=== PATIENT | female | born 1980 | race Caucasian/White ===

== ENCOUNTER 2017-05-13 19:20 | Emergency (ER) | payer BC ==
--- NOTE | 2017-05-13 19:39 | EDM.PDOC ---
ED HPI GENERAL MEDICAL PROBLEM - General Chief Complaint: Cardiovascular Problem Stated Complaint: 38 WEEKS IRREGULAR HEARTBEAT Time Seen by Provider: 05/13/17 19:25 - History of Present Illness INITIAL COMMENTS - FREE TEXT/NARRATIVE: HISTORY AND PHYSICAL: History of present illness: Patient 36 show female was scheduled for next who presents with a concern of palpitations she has a history of hypertensions on medication for that and states she's had these episodes of fluttering of her heart since yesterday she had multiple episodes today quantified by 60-70 vair without associated chest pain nausea vomiting dizziness or any other concern she had no vaginal discharge cramping bleeding or other complaints. Review of systems: As per history of present illness and below otherwise all systems reviewed and negative. Past medical history: As per history of present illness and as reviewed below otherwise noncontributory. Surgical history: As per history of present illness and as reviewed below otherwise noncontributory. Social history: No reported history of drug or alcohol abuse. Family history: As per history of present illness and as reviewed below otherwise noncontributory. Physical exam: HEENT: Atraumatic, normocephalic, pupils reactive, negative for conjunctival pallor or scleral icterus, mucous membranes moist, throat clear, neck supple, nontender, trachea midline. Lungs: Clear to auscultation, breath sounds equal bilaterally, chest nontender. Heart: S1S2, regular, negative for clicks, rubs, or JVD. Abdomen: Soft, nondistended, nontender. Negative for masses or hepatosplenomegaly. Negative for costovertebral tenderness. Pelvis: Stable nontender. Genitourinary: Deferred. Rectal: Deferred. Extremities: Atraumatic, negative for cords or calf pain. Neurovascular unremarkable. Neuro: Awake, alert, oriented. Cranial nerves II through XII unremarkable. Cerebellum unremarkable. Motor and sensory unremarkable throughout. Exam nonfocal. Diagnostics: CBC CMP troponin PT/INR chest x-ray EKG heart tones Therapeutics: hospital monitor Impression: 1 palpitations #2 history of 38 week intrauterine #3 history of hypertension Definitive disposition and diagnosis as appropriate pending reevaluation and review of above. - Related Data Allergies Allergy/AdvReac Type Severity Reaction Status Date / Time ibuprofen [From Advil] Allergy Difficulty Verified 05/13/17 19:25 Breathing Home Meds: Home Meds Azithromycin 600 mg PO 05/13/17 [History] Fluticasone/Salmeterol [Advair Diskus 250-50] 05/13/17 [History] Labetalol [Normodyne] 100 mg PO BID 05/13/17 [History] Pnv No.122/Iron/Folic Acid [ Multi Tablet] 1 tab 05/13/17 [History] Past Medical History HEENT History: Reports: None Cardiovascular History: Reports: Hypertension Respiratory History: Reports: Asthma Gastrointestinal History: Reports: None Genitourinary History: Reports: None 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 CRIB MANAGER History: Reports: Musculoskeletal History: Reports: None Neurological History: Reports: None Psychiatric History: Reports: None Endocrine/Metabolic History: Reports: None Hematologic History: Reports: None Dermatologic History: Reports: None - Infectious Disease History Infectious Disease History: Reports: Chicken Pox Social & Family History - Family History Family Medical History: Noncontributory - Tobacco Use Smoking Status *Q: Never Smoker - Recreational Drug Use Recreational Drug Use: No ED ROS GENERAL - Review of Systems Review Of Systems: ROS reveals no pertinent complaints other than HPI. ED EXAM, GENERAL - Physical Exam Exam: See Below (See dictation) Course - Vital Signs Text/Narrative:: Case discussed with TOOL CRIB MANAGER request patient be sent to labor and delivery status post evaluation for further evaluation and monitoring Last Recorded V/S: Last Vital Signs Temp 36.6 C 05/13/17 19:27 Pulse 89 05/13/17 19:27 Resp 18 05/13/17 19:27 BP 169/94 H 05/13/17 19:27 Pulse Ox 96 05/13/17 19:27 - Orders/Labs/Meds Orders: Active Orders 24 hr Category Date Time Status EKG 12 Lead [EKG Documentation Completion] [RC] STAT Care 05/13/17 19:33 Active Chest 1V Frontal [CR] Stat Exams 05/13/17 19:33 Ordered CBC WITH AUTO DIFF [HEME] Stat Lab 05/13/17 19:33 Ordered CKMB [CHEM] Stat Lab 05/13/17 19:34 Ordered COMPREHENSIVE METABOLIC PN,CMP [CHEM] Stat Lab 05/13/17 19:33 Ordered INR,PT,PROTHROMBIN TIME [COAG] Stat Lab 05/13/17 19:34 Ordered TROPONIN I [CHEM] Stat Lab 05/13/17 19:33 Ordered Departure - Departure Time of Disposition: 19:37 Disposition: Home, Self-Care 01 Condition: Good Clinical Impression: Palpitations, Third trimester , Hypertension Forms: ED Department Discharge Additional Instructions: The following information is given to patients seen in the emergency department who are being discharged to home. This information is to outline your options for follow-up care. We provide all patients seen in our emergency department with a follow-up referral. The need for follow-up, as well as the timing and circumstances, are variable depending upon the specifics of your emergency department visit. If you don't have a primary care physician on staff, we will provide you with a referral. We always advise you to contact your personal physician following an emergency department visit to inform them of the circumstance of the visit and for follow-up with them and/or the need for any referrals to a consulting specialist. The emergency department will also refer you to a specialist when appropriate. This referral assures that you have the opportunity for followup care with a specialist. All of these measure are taken in an effort to provide you with optimal care, which includes your followup. Under all circumstances we always encourage you to contact your private physician who remains a resource for coordinating your care. When calling for followup care, please make the office aware that this follow-up is from your recent emergency room visit. If for any reason you are refused follow-up, please contact the [facility] emergency department at and asked to speak to the emergency department charge nurse. Follow-up labor and delivery immediately as discussed return as needed as discussed - My Orders Last 24 Hours: My Active Orders 05/13/17 19:33 EKG 12 Lead [EKG Documentation Completion] [RC] STAT Chest 1V Frontal [CR] Stat CBC WITH AUTO DIFF [HEME] Stat COMPREHENSIVE METABOLIC PN,CMP [CHEM] Stat TROPONIN I [CHEM] Stat 05/13/17 19:34 CKMB [CHEM] Stat INR,PT,PROTHROMBIN TIME [COAG] Stat - Assessment/Plan Last 24 Hours: My Active Orders 05/13/17 19:33 EKG 12 Lead [EKG Documentation Completion] [RC] STAT Chest 1V Frontal [CR] Stat CBC WITH AUTO DIFF [HEME] Stat COMPREHENSIVE METABOLIC PN,CMP [CHEM] Stat TROPONIN I [CHEM] Stat 05/13/17 19:34 CKMB [CHEM] Stat INR,PT,PROTHROMBIN TIME [COAG] Stat
[2017-05-13 20:14] LABS: CHLORIDE,CL 107 mmol/L (98-110); SODIUM,NA 139 mmol/L (136-146)
[2017-05-13 20:31] VITALS: BP 157/88
--- NOTE | 2017-05-15 11:37 | CR ---
EXAM DATE: 05/13/17 PATIENT'S AGE: 36 Patient: ALCIRA BOWIE Facility: [place], [place] Site . Site : [id number] Study: XRay Chest [id number]/24/2017 8:13:57 PM Ordering Physician: Boston Osborne Final Report: INDICATION: PT STATES IRREGULAR HEARTBEAT, "FLUTTER". PT IS 38 WKS . Single AP view Findings: The lungs are clear. Pulmonary vascularity, mediastinum and cardiac silhouette are within normal limits. No effusions and no pneumothorax. Osseous structures appear unremarkable. Impression: No evidence of acute cardiopulmonary disease. Dictated by: Saul Tatum MD @ 05/13/2017 20:15:38 (Electronic Signature) Report Signed by Proxy. RASHAD
== END 2017-05-13 20:46 | disposition home or self-care (01) ==
LOC: MW.ED 19:20
DX: O16.3 Unspecified maternal hypertension, third trimester (principal); J45.909 Unspecified asthma, uncomplicated; O47.1 False labor at or after 37 completed weeks of gestation; Z3A.38 38 weeks gestation of pregnancy; Z36 Encounter for antenatal screening of mother
CPT/HCPCS: 36415; 59025; 71010; 71010-26; 80053; 81003; 82553; 84484; 84550; 85025; 85610; 93005; 99283; 99285-25

== ENCOUNTER 2017-05-18 09:38 | Inpatient (IN) | payer BC ==
[2017-05-18] MEDS ORDERED: ceFAZolin 2 GM in Premix Bag 1 BAG IV ONE (09:52)
[2017-05-18] MEDS ORDERED: Sodium Chloride 0.9% 2.5 ML Syringe FLUSH PRN (09:52)
[2017-05-18] MEDS ORDERED: Sodium Chloride 0.9% 10 ML Syringe FLUSH PRN (09:52)
[2017-05-18] MEDS ORDERED: Citric Acid/Sodium Citrate Solution 30 ML Cup PO SCH (10:00)
[2017-05-18] MEDS: Lactated Ringers 1,000 ML IV SCH ×3 (10:24→11:39)
--- NOTE | 2017-05-18 11:26 | PCM.PREANE ---
Preanesthetic Assessment - Procedure Proposed Procedure: #3; tubal ligation? - Anesthesia/Transfusion/Family Hx Anesthesia History: Prior Anesthesia Without Reaction Family History of Anesthesia Reaction: No Transfusion History: No Prior Transfusion(s) Additional History: Hx of recent cough and cold treated aggressively with advair and zithromax. Patient has hypertension in the non- state as well but states she does not take any medicine..a discussion followed with recommendation to seek following for HBP and medicate if recommended. - Review of Systems General: No Symptoms Pulmonary: Other (hx asthma) Cardiovascular: Other (hypertension on meds) Gastrointestinal: Other (GERD) Neurological: Headache (migraines) Other: Reports: None - Physical Assessment NPO Status Date: 05/17/17 NPO Status Time: 23:00 Height: 5 ft 10 in Weight: 238 lb ASA Class: 3 Mental Status: Alert & Oriented x3 Airway Class: Mallampati = 1 Dentition: Reports: Normal Dentition Thyro-Mental Finger Breadths: 3 Mouth Opening Finger Breadths: 3 ROM/Head Extension: Full Lungs: Clear to auscultation, Normal respiratory effort, Other (no cough with a very deep breath) Cardiovascular: Regular Rate, Regular Rhythm - Lab Values: Laboratory Last Values WBC 11.78 K/uL (4.0-11.0) H 05/18/17 10:16 RBC 4.24 M/uL (4.30-5.90) L 05/18/17 10:16 Hgb 12.6 g/dL (12.0-16.0) 05/18/17 10:16 Hct 38.1 % (36.0-46.0) 05/18/17 10:16 MCV 89.9 fL (80.0-98.0) 05/18/17 10:16 MCH 29.7 pg (27.0-32.0) 05/18/17 10:16 MCHC 33.1 g/dL (31.0-37.0) 05/18/17 10:16 RDW Std Deviation 44.4 fl (28.0-62.0) 05/18/17 10:16 RDW Coeff of Shahram 14 % (11.0-15.0) 05/18/17 10:16 Plt Count 201 K/uL (150-400) 05/18/17 10:16 MPV 10.60 fL (7.40-12.00) 05/18/17 10:16 Nucleated RBC % 0.0 /100WBC 05/18/17 10:16 Nucleated RBCs # 0 K/uL 05/18/17 10:16 Blood Type O POSITIVE 05/18/17 10:16 Antibody Screen NEGATIVE 05/18/17 10:16 - Allergies Allergies/Adverse Reactions: Allergies Allergy/AdvReac Type Severity Reaction Status Date / Time advil liquid gel Allergy Difficulty Uncoded 05/15/17 08:48 Breathing - Blood Blood Available: Yes Product(s) Available: PRBC (T and S) - Anesthesia Plan Pre-Op Medication Ordered: Antacids Beta Jaspreet: Labetalol (yesterday) - Acknowledgements Anesthesia Type Planned: Spinal Pt an Appropriate Candidate for the Planned Anesthesia: Yes Alternatives and Risks of Anesthesia Discussed w Pt/Guardian: Yes Pt/Guardian Understands and Agrees with Anesthesia Plan: Yes PreAnesthesia Questionnaire HEENT History: Reports: None Cardiovascular History: Reports: Hypertension Respiratory History: Reports: Asthma Gastrointestinal History: Reports: None Genitourinary History: Reports: None 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 ANTHROPOLOGIST History: Reports: Musculoskeletal History: Reports: Fracture Other Musculoskeletal History: hx fx leg Neurological History: Reports: Migraines Psychiatric History: Reports: None Endocrine/Metabolic History: Hematologic History: Reports: None Dermatologic History: Reports: None - Infectious Disease History Infectious Disease History: Reports: Chicken Pox - Past Surgical History Head Surgeries/Procedures: Reports: None Cardiovascular Surgical History: Reports: None Respiratory Surgical History: Reports: None Female Surgical History: Reports: Section, Tubal Ligation Other Female Surgeries/Procedures: c/section x2, tubal ligation and reversal of tubal ligation, (growth removed from colon with 1st c/section) Musculoskeletal Surgical History: Reports: None - SUBSTANCE USE Smoking Status *Q: Never Smoker Tobacco Use Within Last Twelve Months: No Recreational Drug Use History: No - HOME MEDS Home Medications: Home Meds Fluticasone/Salmeterol [Advair Diskus 250-50] 1 puff INH BID 05/13/17 [History] Labetalol [Normodyne] 100 mg PO BID 05/13/17 [History] Pnv No.122/Iron/Folic Acid [ Multi Tablet] 1 tab PO DAILY 05/13/17 [ History] Acetaminophen [Tylenol] 2 tab PO ASDIRECTED PRN 05/15/17 [History] Albuterol [Ventolin HFA] 2 puff INH ASDIRECTED PRN 05/15/17 [History] Magnesium 250 mg PO BID 05/15/17 [History] - CURRENT (IN HOUSE) MEDS Current Meds: Current Medications Citric Acid/Sodium Citrate (Bicitra Solution) 30 ml PO .ONCE ANGELY Lactated Ringer's (Ringers, Lactated) 1,000 mls @ 500 mls/hr IV .BOLUS ANGELY Last Admin: 05/18/17 10:47 Dose: 500 mls/hr Sodium Chloride (Saline Flush) 10 ml FLUSH ASDIRECTED PRN PRN Reason: Keep Vein Open Sodium Chloride (Saline Flush) 2.5 ml FLUSH ASDIRECTED PRN PRN Reason: Keep Vein Open Discontinued Medications Cefazolin Sodium/Dextrose 2 gm (/ Premix) 50 mls @ 100 mls/hr IV ONETIME ONE Stop: 05/18/17 10:21
[2017-05-18] MEDS ORDERED: Oxytocin/Lactated Ringers 30 UNIT/500 ML BAG ONE (11:31)
[2017-05-18] MEDS ORDERED: Morphine PF 10 MG/10 ML SDV ONE (11:37)
[2017-05-18] MEDS ORDERED: Octyl 2-Cyanoacrylate 1 Tube ONE (12:36)
[2017-05-18] MEDS ORDERED: Phenylephrine/Normal Saline 100 MCG/ML 10 ML Syringe ONE (12:41)
--- NOTE | 2017-05-18 13:07 | PCM.OPNOTE ---
- General Post-Op/Procedure Note Date of Surgery/Procedure: 05/18/17 Operative Procedure(s): RLTCS with bilateral salphingectomy Findings: viable male, 3805g, Apgars 9, 9 Pre Op Diagnosis: full term at 39w0d, desired repeat section with bilateral salphingectomy for sterilization Post-Op Diagnosis: same as above Anesthesia Technique: Combo spinal/epidural Primary Surgeon: Rosibel Reeder Secondary Surgeon: Sheila Rendon Anesthesia Provider: Onofre Vo Change Management: Mercedes Bethea Pathology: bilateral fallopian tubes Fluid Replacement, Intraop: 2,000 Output, Urine Amount: 50 EBL in mLs: 700 (with fluid) Condition: Good
[2017-05-18] MEDS ORDERED: diphenhydrAMINE 50 MG/ML SDV IVPUSH PRN ×2 (13:13→13:16)
[2017-05-18] MEDS ORDERED: Lanolin 100% Cream 7 GM Tube TOP PRN (13:13)
[2017-05-18] MEDS ORDERED: Bisacodyl 10 MG Supp RECTAL PRN (13:13)
[2017-05-18] MEDS ORDERED: Ondansetron 4 MG/2 ML SDV IV PRN (13:13)
[2017-05-18] MEDS ORDERED: Acetaminophen/oxyCODONE 325-5 MG Tab PO PRN ×2 (13:13→13:16)
[2017-05-18] MEDS ORDERED: Ibuprofen 800 MG Tab PO PRN (13:13)
[2017-05-18] MEDS ORDERED: Methylergonovine 0.2 MG/1 ML Amp IM PRN (13:13)
[2017-05-18] MEDS ORDERED: Lactated Ringers 1,000 ML IV SCH (13:15)
[2017-05-18] MEDS ORDERED: Naloxone 0.4 MG/ML Syringe IVPUSH PRN (13:16)
[2017-05-18] MEDS ORDERED: Nalbuphine 10 MG/1 ML Vial IVPUSH PRN (13:16)
[2017-05-18] MEDS ORDERED: fentaNYL 100 MCG/2 ML SDV IVPUSH PRN (13:16)
[2017-05-18] MEDS ORDERED: Albuterol 8 GM Inhaler INH PRN (13:18)
[2017-05-18] MEDS: Ketorolac 30 MG/ML SDV IVPUSH SCH ×2 (13:33→20:15)
--- NOTE | 2017-05-18 13:44 | PCM.POSTAN ---
POST ANESTHESIA ASSESSMENT - MENTAL STATUS Mental Status: alert, oriented - RESPIRATORY Respiratory Status: respiratory rate WNL, airway patent, O2 saturation stable - CARDIOVASCULAR CV Status: pulse rate WNL, blood pressure stable - GASTROINTESTINAL GI Status: no symptoms - PAIN Pain Score: 0 - POST OP HYDRATION Hydration Status: adequate & stable
--- NOTE | 2017-05-18 19:39 | OR ---
SURGEON: Rosibel Reeder M.D. DATE OF PROCEDURE: 05/18/2017 PREOPERATIVE DIAGNOSES: 39 weeks' intrauterine . Prior section. Desires repeat section. Request sterilization by bilateral salpingectomy. POSTOPERATIVE DIAGNOSES: 39 weeks' intrauterine . Prior section. Desires repeat section. Request sterilization by bilateral salpingectomy. PROCEDURE: Repeat low transverse section with bilateral salpingectomy for sterilization. UNIX DEVELOPER: Sheila Rendon PA-C. ANESTHESIA: Spinal. ESTIMATED BLOOD LOSS: With copious amniotic fluid was 700 mL. IV FLUIDS: 2000 mL crystalloid. URINE OUTPUT: 50 mL. FINDINGS: Live-born male, score 9 and 9, weighing 3806 g. There was adhesion of the omentum to the anterior abdominal wall. Bilateral ovaries appeared normal. Bilateral tubes appeared normal. There was dense adhesions and thickening of the fascia upon entry. COMPLICATIONS: None known. DISPOSITION: Stable to recovery. BRIEF HISTORY: This is a 36-year-old female, G4, P3-0-0-3. She presents at 39 weeks' gestation for repeat delivery. She strongly desires permanent sterilization. She has been approved by the [facility] Ethics Committee. Discussion was held regarding option of tubal ligation with partial salpingectomy versus complete salpingectomy. She desires complete salpingectomy with risks discussed including bleeding, infection, as well as risk of regret. Surgical risks for delivery were discussed including bleeding, infection, injury to bowel, bladder, blood vessels, or other organs, risk of thromboembolic event, and risk of anesthesia. Understanding all these risks, she does desire to proceed. NARRATIVE: With the patient in the left tilt position, under adequate spinal analgesia, the abdomen was prepped with chlorhexidine and draped in usual fashion for abdominal surgery. SCDs were in place. Moss catheter had been placed and she had received 2 g of Ancef IV. After documentation of adequate analgesia, the prior cicatrix was excised and the incision was carried through the subcutaneous tissue to the fascia which was scored transversely in the midline. The fascial incision was extended laterally using curved Michael scissors. The fascia was elevated from the underlying rectus muscle and using sharp and blunt dissection to dissect through the dense adhesions. The rectus muscles were from the overlying fascia. The rectus muscles were then bluntly in the midline. A finger was used to enter the amniotic cavity. The rectus muscles were in the midline using sharp dissection. The Marc O retractor was placed. The visceroperitoneum over the lower uterine segment was incised and an adequate bladder flap was developed. A transverse curvilinear incision was made over the lower uterine segment with a scalpel. A finger was used to enter the amniotic cavity. Copious clear fluid was noted. The incision was extended using blunt dissection. The head was delivered via the uterine incision with fundal pressure. The was bulb suctioned by nose and mouth. The cord was clamped x2 and cut, and the was handed to the nurse in attendance at delivery. The infant was a liveborn male, score 9 and 9, weighing 3806 g. Cord blood was collected for cord ABGs as well as routine cord blood sampling. The placenta was removed by manual extraction. The cervix was opened with a ring forceps. The uterus was cleaned with a dry laparotomy tape. The uterine incision was closed with a running lock suture of 0 Polysorb followed by an imbricating layer of 0 Polysorb. Three additional [id number] sutures were placed for complete hemostasis. Attention was then turned to the tubes. The distal tubal fimbria were dissected free from the ovary using the Harmonic wave and then going proximally along the mesosalpinx to the cornea where the tube was transected, this was repeated on the opposite side. The base of the tubal salpingectomy was inspected and was completely hemostatic and the incision was inspected and at this point was completely hemostatic. Therefore, the Marc O retractor was removed. The incision was inspected one final time and was hemostatic. The omental adhesions to the anterior abdominal wall were dissected using electrocautery. The rectus muscle and peritoneum were loosely approximated in the midline using a running mattress suture of 0 Polysorb. The posterior aspect of the fascia was inspected and was hemostatic. The fascial incision was closed with a running suture of 0 Polysorb. Subcutaneous tissue was irrigated. Any areas of bleeding that were noted were cauterized. The deep subcutaneous tissue was reapproximated using a running suture of 3-0 plain followed by a subcuticular suture for the skin of 3- 0 Polysorb with a final layer of Dermabond for the superficial skin. Final sponge, needle, and instrument counts were reported as correct. There were no known complications. The patient is in recovery in good condition. Lambert is in nursery in good condition. TARUN WINSTON /[id number]
[2017-05-18] MEDS: Fluticasone/Salmeterol 250-50 MCG Inhalation Powder 14/Diskus INH SCH (20:32)
[2017-05-18] MEDS: Labetalol 100 MG Tab PO SCH (23:38)
[2017-05-18] MEDS: Docusate Sodium 100 MG Cap PO SCH (23:38)
[2017-05-18] MEDS: Magnesium [Magnesium] 250 MG PO SCH (23:40)
[2017-05-19] MEDS: Ketorolac 30 MG/ML SDV IVPUSH SCH ×3 (00:51→13:35)
[2017-05-19] MEDS: Fluticasone/Salmeterol 250-50 MCG Inhalation Powder 14/Diskus INH SCH ×2 (08:27→20:12)
--- NOTE | 2017-05-19 08:32 | PCM.PNPP ---
[id number] Status: Reports: pain controlled, tolerating diet, ambulating, urinating, incentive spirometry (instructed patient to use every hour) - Review of Systems General: Denies: Fever, Weakness, Fatigue Pulmonary: Denies: shortness of breath, pleuritic chest pain, cough Cardiovascular: Denies: Chest Pain, Palpitations, Dyspnea on Exertion Gastrointestinal: Denies: Abdominal pain Genitourinary: Denies: dysuria Psychiatric: Reports: no symptoms - General Info Date of Service: 05/19/17 - Patient Data Vital Signs - most recent: Last Vital Signs Temp 36.3 C 05/19/17 04:00 Pulse 77 05/19/17 07:00 Resp 16 05/19/17 07:00 BP 121/81 05/19/17 04:00 Pulse Ox 94 L 05/19/17 07:00 Weight - most recent: 107.955 kg I&O - last 24 hours: Intake & Output 05/18/17 05/19/17 05/19/17 22:59 06:59 14:59 Intake Total 990 1400 Output Total 3720 Balance 990 -2320 Lab Results - last 24 hrs: Laboratory Results - last 24 hr 05/18/17 05/18/17 05/19/17 Range/Units 10:16 10:16 05:27 WBC 11.78 H (4.0-11.0) K/uL RBC 4.24 L (4.30-5.90) M/uL Hgb 12.6 11.3 L (12.0-16.0) g/dL Hct 38.1 33.7 L (36.0-46.0) % MCV 89.9 (80.0-98.0) fL MCH 29.7 (27.0-32.0) pg MCHC 33.1 (31.0-37.0) g/dL RDW Std Deviation 44.4 (28.0-62.0) fl RDW Coeff of Shahram 14 (11.0-15.0) % Plt Count 201 (150-400) K/uL MPV 10.60 (7.40-12.00) fL Nucleated RBC % 0.0 /100WBC Nucleated RBCs # 0 K/uL Blood Type O POSITIVE Antibody Screen NEGATIVE Med Orders - Current: Current Medications Albuterol (Ventolin Hfa) 0 gm INH ASDIRECTED PRN PRN Reason: Shortness of Breath Bisacodyl (Dulcolax) 10 mg RECTAL .ONCE PRN PRN Reason: Constipation Diphenhydramine HCl (Benadryl) 25 mg IVPUSH Q6H PRN PRN Reason: Itching or Nausea Diphenhydramine HCl (Benadryl) 25 mg IVPUSH Q4H PRN PRN Reason: Itching Stop: 05/19/17 13:20 Docusate Sodium (Colace) 100 mg PO BID [facility] Last Admin: 05/18/17 23:38 Dose: 100 mg Emollient Ointment (Lansinoh Hpa) 0 gm TOP ASDIRECTED PRN PRN Reason: Sore Nipples Fentanyl (Sublimaze) 25 - 50 mcg IVPUSH Q30M PRN PRN Reason: Pain Lactated Ringer's (Ringers, Lactated) 1,000 mls @ 125 mls/hr IV ASDIRECTED [facility] Last Admin: 05/18/17 14:20 Dose: 125 mls/hr Ibuprofen (Motrin) 800 mg PO Q8H PRN PRN Reason: mild pain or fever Ketorolac Tromethamine (Toradol) 30 mg IVPUSH Q6H [facility] Stop: 05/19/17 13:16 Last Admin: 05/19/17 06:52 Dose: 30 mg Labetalol HCl (Normodyne) 100 mg PO BID [facility] Last Admin: 05/18/17 23:38 Dose: 100 mg Methylergonovine Maleate (Methergine) 0.2 mg IM .ONCE PRN PRN Reason: Excessive Vaginal Bleeding Nalbuphine HCl (Nubain) 5 mg IVPUSH Q3H PRN PRN Reason: Pruritis Stop: 05/19/17 13:16 Last Admin: 05/18/17 14:13 Dose: 5 mg Naloxone HCl (Narcan) 0.1 mg IVPUSH ONETIME PRN PRN Reason: Other Stop: 05/19/17 13:20 Ondansetron HCl (Zofran) 4 mg IV Q4H PRN PRN Reason: Nausea/Vomiting Oxycodone/Acetaminophen (Percocet 325-5 Mg) 1 - 2 tab PO Q6H PRN PRN Reason: Pain Stop: 05/20/17 14:00 Oxycodone/Acetaminophen (Percocet 325-5 Mg) 1 - 2 tab PO Q4H PRN PRN Reason: Pain (moderate 4-6) Magnesium [Magnesium (] 250 Mg) 250 each PO BID [facility] Last Admin: 05/18/17 23:40 Dose: 250 each Prenat Multivit/Rn Home Care/Iron/Folic Ac ( Mtr) 1 each PO DAILY [facility] Fluticasone/Salmeterol (Advair Diskus 250-50) 1 puff INH BID [facility] Last Admin: 05/19/17 08:27 Dose: 1 puff Discontinued Medications Citric Acid/Sodium Citrate (Bicitra Solution) 30 ml PO .ONCE [facility] Last Admin: 05/18/17 11:48 Dose: 30 ml Lactated Ringer's (Ringers, Lactated) 1,000 mls @ 500 mls/hr IV .BOLUS [facility] Last Admin: 05/18/17 11:39 Dose: 500 mls/hr Cefazolin Sodium/Dextrose 2 gm (/ Premix) 50 mls @ 100 mls/hr IV ONETIME ONE Stop: 05/18/17 10:21 Oxytocin/Lactated Ringer's (Pitocin In Lr 30 Units/500 Ml) Confirm Administered Dose 30 unit in 500 mls @ as directed .ROUTE .STK-MED ONE Stop: 05/18/17 11:32 Morphine Sulfate (Duramorph Pf) Confirm Administered Dose 10 mg .ROUTE .STK-MED ONE Stop: 05/18/17 11:38 Octyl Cyanoacrylate (Dermabond Advance) Confirm Administered Dose 1 applic .ROUTE .STK-MED ONE Stop: 05/18/17 12:37 Phenylephrine HCl (Phenylephrine In Ns 100 Mcg/Ml) Confirm Administered Dose 1 mg .ROUTE .STK-MED ONE Stop: 05/18/17 12:42 Sodium Chloride (Saline Flush) 10 ml FLUSH ASDIRECTED PRN PRN Reason: Keep Vein Open Sodium Chloride (Saline Flush) 2.5 ml FLUSH ASDIRECTED PRN PRN Reason: Keep Vein Open - Infant Interaction Infant Disposition, : [place] in Room with Family Infant Interaction: Holding Feeding: Breastfed Infant; Nursed Well Support Person: - Recovery Exam Fundal Tone: Firm Fundal Level: 1 Fingerbreadths Below Umbilicus Fundal Placement: Midline Lochia Amount: Scant, Small Lochia Color: Rubra/Red Perineum Description: Intact, Minimal Bruising/Swelling Episiotomy/Laceration: None Bladder Status: Indwelling Catheter in Place Urinary Elimination: Indwelling Catheter - Exam General: alert, oriented Lungs: Clear to auscultation Cardiovascular: Regular Rate, Regular Rhythm Abdomen: bowel sounds present, soft, no tenderness, no distension Extremities: edema (trace) Psy/Mental Status: alert, normal affect, normal mood - Problem List & Annotations (1) delivery delivered SNOMED Code(s): 321538100 Code(s): O82 - ENCOUNTER FOR DELIVERY WITHOUT INDICATION Status: Acute Current Visit: Yes - Problem List Review Problem List Initiated/Reviewed/Updated: Yes - My Orders Last 24 Hours: My Active Orders 05/18/17 13:13 Patient Status [ADT] Routine Ambulate [RC] PER UNIT ROUTINE Communication Order [RC] PER UNIT ROUTINE Communication Order [RC] PER UNIT ROUTINE Communication Order [RC] Per Unit Routine Intake and Output [RC] Q8H May Shower [RC] ASDIRECTED Notify Provider Intake and Out [RC] ASDIRECTED Notify Provider Vital Signs [RC] ASDIRECTED RT Incentive Spirometry [RC] Q2HWA Acetaminophen/oxyCODONE [Percocet 325-5 MG] 1 - 2 tab PO Q4H PRN Bisacodyl [Dulcolax] 10 mg RECTAL .ONCE PRN Ibuprofen [Motrin] 800 mg PO Q8H PRN Lanolin [Lansinoh HPA] See Dose Instructions TOP ASDIRECTED PRN Methylergonovine [Methergine] 0.2 mg IM .ONCE PRN Ondansetron [Zofran] 4 mg IV Q4H PRN diphenhydrAMINE [Benadryl] 25 mg IVPUSH Q6H PRN Abdominal Binder [OM.PC] Routine Assess Lochia [WOMSER] Per Unit Routine Assess Uterine Involution [WOMSER] Per Unit Routine Breast Pump [WOMSER] Per Unit Routine Peripheral IV Discontinue [OM.PC] Routine Sequential Compression Device [OM.PC] Per Unit Routine Resuscitation Status Routine 05/18/17 13:14 Antiembolic Devices [RC] PER UNIT ROUTINE 05/18/17 13:15 Ketorolac [Toradol] 30 mg IVPUSH Q6H Lactated Ringers [Ringers, Lactated] 1,000 ml IV ASDIRECTED 05/18/17 13:18 Albuterol [Ventolin HFA] 0 gm INH ASDIRECTED PRN 05/18/17 21:00 Docusate Sodium [Colace] 100 mg PO BID Fluticasone/Salmeterol [Advair Diskus 250-50] 1 puff INH BID Labetalol [Normodyne] 100 mg PO BID Patient's Own Medication [Ptom] 250 each PO BID 05/18/17 Dinner Regular Diet [DIET] 05/19/17 09:00 Vit/FA/Fe Fumarate/Se [ MTR] 1 each PO DAILY - Assessment Assessment:: POD#1 from [facility]LTCS with bilateral salphingectomy. Minimal pain and lochia. Denies SOB or wheezing. Aim for discharge tomorrow. - Plan Plan:: Continue routine post-op cares. Encouraged to shower and ambulate halls. Anticipate discharge home tomorrow. <Rosibel Reeder - Last Filed: 05/19/17 17:50> - Patient Data Vital Signs - most recent: Last Vital Signs Temp 36.9 C 05/19/17 16:00 Pulse 89 05/19/17 16:00 Resp 20 05/19/17 16:00 BP 127/78 05/19/17 16:00 Pulse Ox 94 L 05/19/17 16:00 I&O - last 24 hours: Intake & Output 05/19/17 05/19/17 05/19/17 06:59 14:59 22:59 Intake Total 1400 Output Total 3720 700 Balance -2320 -700 Lab Results - last 24 hrs: Laboratory Results - last 24 hr 05/19/17 Range/Units 05:27 Hgb 11.3 L (12.0-16.0) g/dL Hct 33.7 L (36.0-46.0) % Med Orders - Current: Current Medications Albuterol (Ventolin Hfa) 0 gm INH ASDIRECTED PRN PRN Reason: Shortness of Breath Bisacodyl (Dulcolax) 10 mg RECTAL .ONCE PRN PRN Reason: Constipation Diphenhydramine HCl (Benadryl) 25 mg IVPUSH Q6H PRN PRN Reason: Itching or Nausea Docusate Sodium (Colace) 100 mg PO BID [facility] Last Admin: 05/19/17 09:04 Dose: 100 mg Emollient Ointment (Lansinoh Hpa) 0 gm TOP ASDIRECTED PRN PRN Reason: Sore Nipples Fentanyl (Sublimaze) 25 - 50 mcg IVPUSH Q30M PRN PRN Reason: Pain Lactated Ringer's (Ringers, Lactated) 1,000 mls @ 125 mls/hr IV ASDIRECTED [facility] Last Admin: 05/18/17 14:20 Dose: 125 mls/hr Ibuprofen (Motrin) 800 mg PO Q8H PRN PRN Reason: mild pain or fever Labetalol HCl (Normodyne) 100 mg PO BID [facility] Last Admin: 05/19/17 09:06 Dose: 100 mg Methylergonovine Maleate (Methergine) 0.2 mg IM .ONCE PRN PRN Reason: Excessive Vaginal Bleeding Ondansetron HCl (Zofran) 4 mg IV Q4H PRN PRN Reason: Nausea/Vomiting Oxycodone/Acetaminophen (Percocet 325-5 Mg) 1 - 2 tab PO Q6H PRN PRN Reason: Pain Stop: 05/20/17 14:00 Oxycodone/Acetaminophen (Percocet 325-5 Mg) 1 - 2 tab PO Q4H PRN PRN Reason: Pain (moderate 4-6) Magnesium [Magnesium (] 250 Mg) 250 each PO BID [facility] Last Admin: 05/19/17 09:06 Dose: 250 each Prenat Multivit/Cable/Iron/Folic Ac ( Mtr) 1 each PO DAILY [facility] Last Admin: 05/19/17 09:04 Dose: 1 each Fluticasone/Salmeterol (Advair Diskus 250-50) 1 puff INH BID [facility] Last Admin: 05/19/17 08:27 Dose: 1 puff Discontinued Medications Citric Acid/Sodium Citrate (Bicitra Solution) 30 ml PO .ONCE [facility] Last Admin: 05/18/17 11:48 Dose: 30 ml Diphenhydramine HCl (Benadryl) 25 mg IVPUSH Q4H PRN PRN Reason: Itching Stop: 05/19/17 13:20 Lactated Ringer's (Ringers, Lactated) 1,000 mls @ 500 mls/hr IV .BOLUS [facility] Last Admin: 05/18/17 11:39 Dose: 500 mls/hr Cefazolin Sodium/Dextrose 2 gm (/ Premix) 50 mls @ 100 mls/hr IV ONETIME ONE Stop: 05/18/17 10:21 Last Admin: 05/19/17 09:49 Dose: Not Given Oxytocin/Lactated Ringer's (Pitocin In Lr 30 Units/500 Ml) Confirm Administered Dose 30 unit in 500 mls @ as directed .ROUTE .STK-MED ONE Stop: 05/18/17 11:32 Last Admin: 05/19/17 09:49 Dose: Not Given Ketorolac Tromethamine (Toradol) 30 mg IVPUSH Q6H [facility] Stop: 05/19/17 13:16 Last Admin: 05/19/17 13:35 Dose: 30 mg Morphine Sulfate (Duramorph Pf) Confirm Administered Dose 10 mg .ROUTE .STK-MED ONE Stop: 05/18/17 11:38 Nalbuphine HCl (Nubain) 5 mg IVPUSH Q3H PRN PRN Reason: Pruritis Stop: 05/19/17 13:16 Last Admin: 05/18/17 14:13 Dose: 5 mg Naloxone HCl (Narcan) 0.1 mg IVPUSH ONETIME PRN PRN Reason: Other Stop: 05/19/17 13:20 Octyl Cyanoacrylate (Dermabond Advance) Confirm Administered Dose 1 applic .ROUTE .STK-MED ONE Stop: 05/18/17 12:37 Phenylephrine HCl (Phenylephrine In Ns 100 Mcg/Ml) Confirm Administered Dose 1 mg .ROUTE .STK-MED ONE Stop: 05/18/17 12:42 Sodium Chloride (Saline Flush) 10 ml FLUSH ASDIRECTED PRN PRN Reason: Keep Vein Open Sodium Chloride (Saline Flush) 2.5 ml FLUSH ASDIRECTED PRN PRN Reason: Keep Vein Open - Plan Plan:: patient see and examined and I agree with above.
--- NOTE | 2017-05-19 08:44 | PCM48HPAN ---
Post Anesthesia Note - EVALUATION WITHIN 48HRS OF ANESTHETIC Vital Signs in Normal Range: Yes Patient Participated in Evaluation: Yes Respiratory Function Stable: Yes Airway Patent: Yes Cardiovascular Function Stable: Yes Hydration Status Stable: Yes Pain Control Satisfactory: Yes Nausea and Vomiting Control Satisfactory: Yes Mental Status Recovered: Yes - COMMENTS/OBSERVATIONS Free Text/Narrative:: Doing well this morning; without complaint or pain problem.
[2017-05-19] MEDS: Prenatal Multivitamin and Multimineral with Iron Tab PO SCH (09:04)
[2017-05-19] MEDS: Docusate Sodium 100 MG Cap PO SCH ×2 (09:04→20:54)
[2017-05-19] MEDS: Labetalol 100 MG Tab PO SCH ×2 (09:06→20:54)
[2017-05-19] MEDS: Magnesium [Magnesium] 250 MG PO SCH ×2 (09:06→20:54)
[2017-05-20] MEDS: Prenatal Multivitamin and Multimineral with Iron Tab PO SCH (08:15)
[2017-05-20] MEDS: Labetalol 100 MG Tab PO SCH (08:15)
[2017-05-20] MEDS: Docusate Sodium 100 MG Cap PO SCH (08:15)
[2017-05-20] MEDS: Magnesium [Magnesium] 250 MG PO SCH (08:16)
[2017-05-20 08:19] VITALS: BP 146/75
[2017-05-20] MEDS: Fluticasone/Salmeterol 250-50 MCG Inhalation Powder 14/Diskus INH SCH (08:23)
--- NOTE | 2017-05-20 09:56 | PCM.PNPP ---
- General Info Date of Service: 05/20/17 Functional Status: Reports: pain controlled, tolerating diet, ambulating, urinating - Review of Systems General: Reports: No Symptoms HEENT: Reports: no symptoms Pulmonary: Reports: no symptoms Cardiovascular: Reports: No Symptoms Gastrointestinal: Reports: No symptoms Genitourinary: Reports: no symptoms Musculoskeletal: Reports: no symptoms Skin: Reports: no symptoms Neurological: Reports: No Symptoms Psychiatric: Reports: no symptoms - General Info Date of Service: 05/20/17 - Patient Data Vital Signs - most recent: Last Vital Signs Temp 36.9 C 05/20/17 08:00 Pulse 93 05/20/17 08:15 Resp 18 05/20/17 08:00 BP 146/75 H 05/20/17 08:15 Pulse Ox 95 05/20/17 08:00 Weight - most recent: 107.955 kg Med Orders - Current: Current Medications Albuterol (Ventolin Hfa) 0 gm INH ASDIRECTED PRN PRN Reason: Shortness of Breath Bisacodyl (Dulcolax) 10 mg RECTAL .ONCE PRN PRN Reason: Constipation Diphenhydramine HCl (Benadryl) 25 mg IVPUSH Q6H PRN PRN Reason: Itching or Nausea Docusate Sodium (Colace) 100 mg PO BID [facility] Last Admin: 05/20/17 08:15 Dose: 100 mg Emollient Ointment (Lansinoh Hpa) 0 gm TOP ASDIRECTED PRN PRN Reason: Sore Nipples Fentanyl (Sublimaze) 25 - 50 mcg IVPUSH Q30M PRN PRN Reason: Pain Lactated Ringer's (Ringers, Lactated) 1,000 mls @ 125 mls/hr IV ASDIRECTED [facility] Last Admin: 05/18/17 14:20 Dose: 125 mls/hr Ibuprofen (Motrin) 800 mg PO Q8H PRN PRN Reason: mild pain or fever Last Admin: 05/20/17 08:15 Dose: 800 mg Labetalol HCl (Normodyne) 100 mg PO BID [facility] Last Admin: 05/20/17 08:15 Dose: 100 mg Methylergonovine Maleate (Methergine) 0.2 mg IM .ONCE PRN PRN Reason: Excessive Vaginal Bleeding Ondansetron HCl (Zofran) 4 mg IV Q4H PRN PRN Reason: Nausea/Vomiting Oxycodone/Acetaminophen (Percocet 325-5 Mg) 1 - 2 tab PO Q6H PRN PRN Reason: Pain Stop: 05/20/17 14:00 Oxycodone/Acetaminophen (Percocet 325-5 Mg) 1 - 2 tab PO Q4H PRN PRN Reason: Pain (moderate 4-6) Magnesium [Magnesium (] 250 Mg) 250 each PO BID [facility] Last Admin: 05/20/17 08:16 Dose: 250 each Prenat Multivit/Permanent [place]aver/Iron/Folic Ac ( Mtr) 1 each PO DAILY [facility] Last Admin: 05/20/17 08:15 Dose: 1 each Fluticasone/Salmeterol (Advair Diskus 250-50) 1 puff INH BID [facility] Last Admin: 05/20/17 08:23 Dose: 1 puff Discontinued Medications Citric Acid/Sodium Citrate (Bicitra Solution) 30 ml PO .ONCE [facility] Last Admin: 05/18/17 11:48 Dose: 30 ml Diphenhydramine HCl (Benadryl) 25 mg IVPUSH Q4H PRN PRN Reason: Itching Stop: 05/19/17 13:20 Lactated Ringer's (Ringers, Lactated) 1,000 mls @ 500 mls/hr IV .BOLUS [facility] Last Admin: 05/18/17 11:39 Dose: 500 mls/hr Cefazolin Sodium/Dextrose 2 gm (/ Premix) 50 mls @ 100 mls/hr IV ONETIME ONE Stop: 05/18/17 10:21 Last Admin: 05/19/17 09:49 Dose: Not Given Oxytocin/Lactated Ringer's (Pitocin In Lr 30 Units/500 Ml) Confirm Administered Dose 30 unit in 500 mls @ as directed .ROUTE .STK-MED ONE Stop: 05/18/17 11:32 Last Admin: 05/19/17 09:49 Dose: Not Given Ketorolac Tromethamine (Toradol) 30 mg IVPUSH Q6H [facility] Stop: 05/19/17 13:16 Last Admin: 05/19/17 13:35 Dose: 30 mg Morphine Sulfate (Duramorph Pf) Confirm Administered Dose 10 mg .ROUTE .STK-MED ONE Stop: 05/18/17 11:38 Nalbuphine HCl (Nubain) 5 mg IVPUSH Q3H PRN PRN Reason: Pruritis Stop: 05/19/17 13:16 Last Admin: 05/18/17 14:13 Dose: 5 mg Naloxone HCl (Narcan) 0.1 mg IVPUSH ONETIME PRN PRN Reason: Other Stop: 05/19/17 13:20 Octyl Cyanoacrylate (Dermabond Advance) Confirm Administered Dose 1 applic .ROUTE .STK-MED ONE Stop: 05/18/17 12:37 Phenylephrine HCl (Phenylephrine In Ns 100 Mcg/Ml) Confirm Administered Dose 1 mg .ROUTE .STK-MED ONE Stop: 05/18/17 12:42 Sodium Chloride (Saline Flush) 10 ml FLUSH ASDIRECTED PRN PRN Reason: Keep Vein Open Sodium Chloride (Saline Flush) 2.5 ml FLUSH ASDIRECTED PRN PRN Reason: Keep Vein Open - Interaction Infant Disposition, : in Room with Family Interaction: Holding Infant Infant Feeding: Breastfed ; Nursed Well Support Person: - Recovery Exam Fundal Tone: Firm Fundal Level: 1 Fingerbreadths Below Umbilicus Fundal Placement: Midline Lochia Amount: Scant Lochia Color: Rubra/Red Perineum Description: Intact, Minimal Bruising/Swelling Episiotomy/Laceration: None Bladder Status: Voiding Urinary Elimination: Voided - Exam General: alert, oriented Neck: supple Lungs: Clear to auscultation, Normal respiratory effort Cardiovascular: Regular Rate Abdomen: bowel sounds present Extremities: no calf tenderness Skin: warm, dry, intact Wound/Incisions: healing well, erythema (superior portion of incision, will bob with marker) Neurological: no new focal deficit Psy/Mental Status: alert, normal affect, normal mood - Problem List Review Problem List Initiated/Reviewed/Updated: Yes - My Orders Last 24 Hours: My Active Orders 05/20/17 09:50 Ready for Discharge [RC] PER UNIT ROUTINE - Assessment Assessment:: POD#2 from [facility] with bilateral salphingectomy. Minimal pain and lochia. Denies SOB or wheezing. Desires discharge home today though encouraged pt to stay 2nd to concerns of erythema at incision - Plan Plan:: Discharge home today Infection precautions given Pelvic rest for 6wks Thrombotic precautions given Bleeding precautions given blues/Depression precautions given
== END 2017-05-20 11:15 | disposition home or self-care (01) | DRG 540 ==
LOC: MW.OB 09:38
PROVIDERS: ADMIT Obstetrics & Gynecology; ATTEND Obstetrics & Gynecology
PROC: 10D00Z1 Extraction of Products of Conception, Low, Open Approach (ICD-10-PCS; principal; 2017-05-18)
PROC: 0UT70ZZ Resection of Bilateral Fallopian Tubes, Open Approach (ICD-10-PCS; 2017-05-18)
DX: O34.211 Maternal care for low transverse scar from previous cesarean delivery (principal); O09.523 Supervision of elderly multigravida, third trimester; Z3A.39 39 weeks gestation of pregnancy; Z37.0 Single live birth; Z30.2 Encounter for sterilization
CPT/HCPCS: 01961; 36415; 59025; 85014; 85018; 85027; 86850; 86900; 86901; 88304; 94640; 94664; A9270-GY; J1885; J2270; J2300; J7120

== ENCOUNTER 2017-08-16 06:29 | Day surgery (SDC) | payer BC ==
[~2017-08-16 06:29] MED LIST: Lactated Ringers 1,000 ML IV SCH; Sodium Chloride 0.9% 10 ML Syringe FLUSH PRN; Sodium Chloride 0.9% 2.5 ML Syringe FLUSH PRN; ceFAZolin 2 GM in Premix Bag 1 BAG IV ONE
[2017-08-16] MEDS ORDERED: Bupivacaine 0.5% 30 ML SDV ONE (06:53)
[2017-08-16] MEDS ORDERED: ceFAZolin 1 GM Vial ONE (06:53)
[2017-08-16] MEDS ORDERED: Propofol 200 MG/20 ML SDV ONE ×2 (07:08→09:00)
[2017-08-16] MEDS ORDERED: Lidocaine 2% 5 ML SDV ONE ×2 (07:08→09:00)
[2017-08-16] MEDS ORDERED: Midazolam 1 MG/ML 2 ML SDV ONE (07:08)
[2017-08-16] MEDS ORDERED: fentaNYL 100 MCG/2 ML SDV ONE ×3 (07:08→09:00)
[2017-08-16] MEDS ORDERED: Ondansetron 4 MG/2 ML SDV ONE (07:08)
--- NOTE | 2017-08-16 07:21 | PCM.PREANE ---
Preanesthetic Assessment - Anesthesia/Transfusion/Family Hx Anesthesia History: Prior Anesthesia Without Reaction Family History of Anesthesia Reaction: No Transfusion History: No Prior Transfusion(s) Intubation History: Unknown - Review of Systems General: No Symptoms Pulmonary: No Symptoms Cardiovascular: No Symptoms Gastrointestinal: No Symptoms Neurological: No Symptoms Other: Reports: None - Physical Assessment O2 Sat by Pulse Oximetry: 97 Respiratory Rate: 16 Vital Signs: Last Vital Signs Temp 36.2 C 08/16/17 06:47 Pulse 62 08/16/17 06:47 Resp 16 08/16/17 06:47 BP 115/80 08/16/17 06:47 Pulse Ox 97 08/16/17 06:47 Height: 1.8 m Weight: 95.254 kg ASA Class: 2 Mental Status: Alert & Oriented x3 Airway Class: Mallampati = 2 Dentition: Reports: Normal Dentition Thyro-Mental Finger Breadths: 3 Mouth Opening Finger Breadths: 2 ROM/Head Extension: Full Lungs: Clear to Auscultation, Normal Respiratory Effort Cardiovascular: Regular Rate, Regular Rhythm - Lab Values: Laboratory Last Values Urine HCG, Qual NEGATIVE (NEGATIVE) 08/16/17 06:35 - Allergies Allergies/Adverse Reactions: Allergies Allergy/AdvReac Type Severity Reaction Status Date / Time advil liquid gel Allergy Difficulty Uncoded 05/15/17 08:48 Breathing - Blood Blood Available: No - Anesthesia Plan Pre-Op Medication Ordered: None - Acknowledgements Anesthesia Type Planned: General Anesthesia Pt an Appropriate Candidate for the Planned Anesthesia: Yes Alternatives and Risks of Anesthesia Discussed w Pt/Guardian: Yes Pt/Guardian Understands and Agrees with Anesthesia Plan: Yes PreAnesthesia Questionnaire HEENT History: Reports: Other (See Below) Other HEENT History: wears glasses Cardiovascular History: Reports: Hypertension Respiratory History: Reports: Asthma (mild) Gastrointestinal History: Reports: None Genitourinary History: Reports: None 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: Musculoskeletal History: Reports: None Other Musculoskeletal History: hx fx leg Neurological History: Reports: None Psychiatric History: Reports: None Endocrine/Metabolic History: Hematologic History: Reports: None Dermatologic History: Reports: None - Infectious Disease History Infectious Disease History: Reports: Chicken Pox - Past Surgical History Head Surgeries/Procedures: Reports: None Cardiovascular Surgical History: Reports: None Respiratory Surgical History: Reports: None GI Surgical History: Reports: Other (See Below) Other GI Surgeries/Procedures: excision of meckels diverticulum during C/S Female Surgical History: Reports: Section, Tubal Ligation Other Female Surgeries/Procedures: c/section x3, tubal ligation and reversal of tubal ligation, (growth removed from colon with 1st c/section) Musculoskeletal Surgical History: Reports: None - SUBSTANCE USE Smoking Status *Q: Former Smoker Tobacco Use Within Last Twelve Months: No Recreational Drug Use History: No - HOME MEDS Home Medications: Home Meds Labetalol [Normodyne] 100 mg PO BID 05/13/17 [History] Albuterol [Ventolin HFA] 2 puff INH ASDIRECTED PRN 05/15/17 [History] Magnesium 250 mg PO BID 05/15/17 [History] Fluticasone/Salmeterol [Advair Diskus 250-50] 1 puff INH BID PRN 08/11/17 [ History] Hydrochlorothiazide 12.5 mg PO DAILY 08/11/17 [History] [place]-3S/DHA/Epa/Fish Oil [Fish Oil [place]-3 Softgel] 1 tab PO DAILY 08/11/17 [ History] - CURRENT (IN HOUSE) MEDS Current Meds: Current Medications Lactated Ringer's (Ringers, Lactated) 1,000 mls @ 125 mls/hr IV ASDIRECTED [facility] Last Admin: 08/16/17 06:50 Dose: 125 mls/hr Sodium Chloride (Saline Flush) 10 ml FLUSH ASDIRECTED PRN PRN Reason: Keep Vein Open Sodium Chloride (Saline Flush) 2.5 ml FLUSH ASDIRECTED PRN PRN Reason: Keep Vein Open Discontinued Medications Bupivacaine HCl (Marcaine 0.5%) Confirm Administered Dose 30 ml .ROUTE .STK-MED ONE Stop: 08/16/17 06:54 Cefazolin Sodium (Ancef) Confirm Administered Dose 1 gm .ROUTE .STK-MED ONE Stop: 08/16/17 06:54 Fentanyl (Sublimaze) Confirm Administered Dose 100 mcg .ROUTE .STK-MED ONE Stop: 08/16/17 07:09 Cefazolin Sodium/Dextrose 2 gm (/ Premix) 50 mls @ 100 mls/hr IV ONETIME ONE Stop: 08/14/17 11:35 Lidocaine (Xylocaine-Mpf 2%) Confirm Administered Dose 5 ml .ROUTE .STK-MED ONE Stop: 08/16/17 07:09 Midazolam HCl (Versed 1 Mg/Ml) Confirm Administered Dose 2 mg .ROUTE .STK-MED ONE Stop: 08/16/17 07:09 Ondansetron HCl (Zofran) Confirm Administered Dose 4 mg .ROUTE .STK-MED ONE Stop: 08/16/17 07:09 Propofol (Diprivan 20 Ml) Confirm Administered Dose 200 mg .ROUTE .STK-MED ONE Stop: 08/16/17 07:09
[2017-08-16] MEDS ORDERED: fentaNYL 100 MCG/2 ML SDV IVPUSH PRN (08:06)
--- NOTE | 2017-08-16 08:52 | PCM.OPNOTE ---
- General Post-Op/Procedure Note Date of Surgery/Procedure: 08/16/17 Operative Procedure(s): Umbilical hernia repair Findings: 1 cm periumbilical fascial defect Pre Op Diagnosis: umbilical hernia repair Post-Op Diagnosis: same Anesthesia Technique: General LMA Primary Surgeon: Sandra STREET in mLs: 5 Condition: Good
--- NOTE | 2017-08-16 09:23 | PCM.POSTAN ---
POST ANESTHESIA ASSESSMENT - MENTAL STATUS Mental Status: Alert, Oriented - RESPIRATORY Respiratory Status: Respiratory Rate WNL, Airway Patent, O2 Saturation Stable - CARDIOVASCULAR CV Status: Pulse Rate WNL, Blood Pressure Stable - GASTROINTESTINAL GI Status: No Symptoms - PAIN Pain Score: 0 - POST OP HYDRATION Hydration Status: Adequate & Stable - OBSERVATIONS Free Text/Narrative:: Pt stable with no pain or nausea at this time.
[2017-08-16] MEDS ORDERED: Acetaminophen/oxyCODONE 325-5 MG Tab PO PRN (10:02)
[2017-08-16 11:17] VITALS: BP 114/70
--- NOTE | 2017-08-16 20:07 | OR ---
SURGEON: ARACELI UMANZOR MD DATE OF PROCEDURE: 08/16/2017 PREOPERATIVE DIAGNOSIS: Umbilical hernia. POSTOPERATIVE DIAGNOSIS: Umbilical hernia. PROCEDURE PERFORMED: Umbilical hernia repair. OTHER SALES SUPPORT WORKER: kindergarten instructional assistant: AARON Shanks Student. ANESTHESIA: General LMA. FLUIDS: See anesthesia record. ESTIMATED BLOOD LOSS: 5 mL. FINDINGS: 1 cm periumbilical defect and hernia sac containing preperitoneal fat. COMPLICATIONS: None. INDICATIONS: The patient is a 37-year-old female, who developed an enlarging and painful periumbilical hernia during her last . The patient is now 3 months and still continues to experience discomfort with this mass. The patient and I discussed repair of the umbilical hernia. Given its size, I do not believe I will need to use mesh, but we discussed the use of mesh if needed. We discussed the procedure, expected perioperative course, and risks including bleeding, infection, or damage to surrounding structures. The patient verbalized understanding and wishes to proceed. PROCEDURE IN DETAIL: The patient was brought to the OR and placed on the OR table in supine position. A time-out was completed verifying the patient's name, age, date of , allergies, and procedure to be performed. The general anesthesia was induced and an LMA placed in the patient's airway. The abdomen was prepped and draped in usual standard fashion. I anesthetized the skin overlying the umbilicus with 0.5% Marcaine plain. The hernia itself was just left of midline. A curvilinear incision was made from the 12 o'clock to 5 o'clock position on the umbilicus using a #15 blade. I used cautery to dissect down to the hernia sac. Once the hernia sac was identified, Metzenbaum scissors was used to free this from the surrounding tissue down to the level of the fascia. The fascia was then cleared away for adequate identification of the fascial defect. The hernia sac was opened from the top down and contained only preperitoneal fat. I then attempted to reduce the hernia sac contents into the abdomen, but was unable to do so. I transected the hernia sac and its contents at the level of the fascial defect. This was sent to pathology labeled as hernia sac. The umbilical hernia fascial defect measured 1 cm in size. Given its small size, the decision was made to close it primarily with nonabsorbable sutures. I placed interrupted 0-Ethilon sutures in horizontal fashion along the fascial defect. Great care was taken not to injure any of the bowel and intraabdominal contents below. I then reattached the umbilicus to the underlying fascia using an interrupted 0 Ethilon suture. The incision was then closed with interrupted 3-0 Vicryl suture in the subcutaneous space and a running 4-0 Monocryl suture in the subcuticular space. Steri-Strips and sterile dressings were applied. The patient tolerated the procedure well and was taken to the PACU in stable condition. STEFANIA WINSTON /[id number] RASHAD
== END 2017-08-16 11:10 | disposition home or self-care (01) ==
LOC: MW.SDS 06:29
PROVIDERS: ATTEND Surgery
DX: K42.9 Umbilical hernia without obstruction or gangrene (principal); I10 Essential (primary) hypertension; J45.909 Unspecified asthma, uncomplicated; Z88.8 Allergy status to other drugs, medicaments and biological substances; Z79.899 Other long term (current) drug therapy; Z98.890 Other specified postprocedural states; Z98.51 Tubal ligation status; Z87.891 Personal history of nicotine dependence
CPT/HCPCS: 49585; 81025; A9270; J2250; J2405; J3010; J7120; 00830; 88302; J0690; J2704

== ENCOUNTER 2019-08-27 08:49 | Day surgery (SDC) | payer BC ==
[~2019-08-27 08:49] MED LIST changes: -Sodium Chloride 0.9% 10 ML Syringe FLUSH PRN; -Sodium Chloride 0.9% 2.5 ML Syringe FLUSH PRN; -ceFAZolin 2 GM in Premix Bag 1 BAG IV ONE
--- NOTE | 2019-08-27 09:51 | PCM.PREANE ---
Preanesthetic Assessment - Anesthesia/Transfusion/Family Hx Anesthesia History: Prior Anesthesia Without Reaction Family History of Anesthesia Reaction: No Transfusion History: No Prior Transfusion(s) Intubation History: Unknown - Review of Systems General: No Symptoms Pulmonary: No Symptoms Cardiovascular: No Symptoms Gastrointestinal: No Symptoms Neurological: No Symptoms Other: Reports: None - Physical Assessment Vital Signs: Last Vital Signs Temp Pulse 80 08/27/19 09:00 Resp 16 08/27/19 09:00 BP 104/71 08/27/19 09:00 Pulse Ox Height: 5 ft 10.5 in Weight: 73.936 kg ASA Class: 2 Mental Status: Alert & Oriented x3 Airway Class: Mallampati = 2 Dentition: Reports: Normal Dentition ROM/Head Extension: Full Lungs: Clear to Auscultation, Normal Respiratory Effort Cardiovascular: Regular Rate, Regular Rhythm - Lab Values: Laboratory Last Values WBC 5.98 K/uL (4.0-11.0) 08/27/19 09:16 RBC 4.68 M/uL (4.30-5.90) 08/27/19 09:16 Hgb 14.5 g/dL (12.0-16.0) 08/27/19 09:16 Hct 42.9 % (36.0-46.0) 08/27/19 09:16 MCV 91.7 fL (80.0-98.0) 08/27/19 09:16 MCH 31.0 pg (27.0-32.0) 08/27/19 09:16 MCHC 33.8 g/dL (31.0-37.0) 08/27/19 09:16 RDW Std Deviation 42.4 fl (28.0-62.0) 08/27/19 09:16 RDW Coeff of Shahram 13 % (11.0-15.0) 08/27/19 09:16 Plt Count 275 K/uL (150-400) 08/27/19 09:16 MPV 10.10 fL (7.40-12.00) 08/27/19 09:16 Nucleated RBC % 0.0 /100WBC 08/27/19 09:16 Nucleated RBCs # 0 K/uL 08/27/19 09:16 - Allergies Allergies/Adverse Reactions: Allergies Allergy/AdvReac Type Severity Reaction Status Date / Time advil liquid gel Allergy Difficulty Uncoded 08/23/19 12:54 Breathing - Blood Blood Available: No - Anesthesia Plan Pre-Op Medication Ordered: None - Acknowledgements Anesthesia Type Planned: General Anesthesia Pt an Appropriate Candidate for the Planned Anesthesia: Yes Alternatives and Risks of Anesthesia Discussed w Pt/Guardian: Yes Pt/Guardian Understands and Agrees with Anesthesia Plan: Yes Additional Comments: PMH: asthma, last inhaler use 2 weeks ago, no recent exacerbations, no oral steroids or ED visits, htn controlled on labetalol and hctz PLAN: ga-LMA with toradol PreAnesthesia Questionnaire HEENT History: Reports: Other (See Below) Other HEENT History: wears glasses/contacts, has upper permanent dental bridge Cardiovascular History: Reports: High Cholesterol, Hypertension Respiratory History: Reports: Asthma Other Respiratory History: rarely uses inhaler Gastrointestinal History: Reports: None Genitourinary History: Reports: None 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: Dysfunctional Uterine Bleeding, Musculoskeletal History: Reports: Back Pain, Chronic, Fracture Other Musculoskeletal History: hx of fx right leg Neurological History: Reports: Other (See Below) Other Neuro History: degenerative disc disease Psychiatric History: Reports: None Endocrine/Metabolic History: Hematologic History: Reports: None Dermatologic History: Reports: None - Infectious Disease History Infectious Disease History: Reports: Chicken Pox - Past Surgical History GI Surgical History: Reports: Other (See Below) Other GI Surgeries/Procedures: removal of Meckels diverticulum, Umbilical Hernia repair Female Surgical History: Reports: Section, Cervical Cryotherapy, Tubal Ligation, Other (See Below) Other Female Surgeries/Procedures: reversal of BTL- then repeat witjh bilateral salpingectomy - SUBSTANCE USE Smoking Status *Q: Former Smoker Tobacco Use Within Last Twelve Months: Cigarettes Recreational Drug Use History: No - HOME MEDS Home Medications: Home Meds Labetalol [Normodyne] 100 mg PO BID 05/13/17 [History] Albuterol [Ventolin HFA] 2 puff INH ASDIRECTED PRN 05/15/17 [History] Magnesium 250 mg PO BID 05/15/17 [History] Campbell-3S/DHA/Epa/Fish Oil [Fish Oil Campbell-3 Softgel] 1 tab PO DAILY 08/11/17 [ History] hydroCHLOROthiazide [Hydrochlorothiazide] 25 mg PO DAILY 08/11/17 [History] - CURRENT (IN HOUSE) MEDS Current Meds: Current Medications Lactated Ringer's (Ringers, Lactated) 1,000 mls @ 125 mls/hr IV ASDIRECTED ANGELY
[2019-08-27] MEDS ORDERED: fentaNYL 250 MCG/5 ML SDV ONE (09:53)
[2019-08-27] MEDS ORDERED: Ondansetron 4 MG/2 ML SDV ONE (09:53)
[2019-08-27] MEDS ORDERED: Midazolam 1 MG/ML 2 ML SDV ONE (09:53)
[2019-08-27] MEDS ORDERED: Propofol 200 MG/20 ML SDV ONE (09:53)
[2019-08-27] MEDS ORDERED: Lidocaine 2% 5 ML SDV ONE (09:53)
[2019-08-27] MEDS ORDERED: Glycopyrrolate 0.2 MG/ML SDV ONE (10:46)
[2019-08-27] MEDS ORDERED: fentaNYL 100 MCG/2 ML SDV IVPUSH PRN (11:57)
[2019-08-27] MEDS ORDERED: Ondansetron 4 MG/2 ML SDV IVPUSH PRN (11:57)
[2019-08-27] MEDS ORDERED: HYDROmorphone 2 MG/ML Syringe IVPUSH PRN (11:58)
[2019-08-27] MEDS ORDERED: ePHEDrine 50 MG/ML SDV ONE (12:04)
[2019-08-27] MEDS ORDERED: Ketorolac 30 MG/ML SDV ONE (12:16)
--- NOTE | 2019-08-27 12:17 | PCM.OPNOTE ---
- General Post-Op/Procedure Note Date of Surgery/Procedure: 08/27/19 Operative Procedure(s): operative hysteroscopy with directed biopies and thermal endometrial ablation. Findings: uterus retroverted sounded to 8 cm, cervical length 4 cm. Bilateral tubal ostis were identified, multiple polypoid lesions with irregular endometrium. Pre Op Diagnosis: menorrhagia Post-Op Diagnosis: Same Anesthesia Technique: General LMA Primary Surgeon: Rosibel Reeder Anesthesia Provider: Emmanuelle Reyna Pathology: directed endometrial biopsies Fluid Replacement, Intraop: 1,000 EBL in mLs: 30 Drain/Tube Comments:: hysteroscopic deficit 30 ml. Complications: None Known Condition: Good
[2019-08-27] MEDS ORDERED: Ketorolac 30 MG/ML SDV IVPUSH ONE (13:04)
--- NOTE | 2019-08-27 13:04 | PCM.POSTAN ---
POST ANESTHESIA ASSESSMENT - MENTAL STATUS Mental Status: Alert, Oriented - VITAL SIGNS Vital Signs: Last Vital Signs Temp Pulse 61 08/27/19 12:50 Resp 9 L 08/27/19 12:50 BP 99/66 08/27/19 12:50 Pulse Ox 96 08/27/19 12:50 - RESPIRATORY Respiratory Status: Respiratory Rate WNL, Airway Patent, O2 Saturation Stable - CARDIOVASCULAR CV Status: Pulse Rate WNL, Blood Pressure Stable - GASTROINTESTINAL GI Status: No Symptoms - POST OP HYDRATION Hydration Status: Adequate & Stable
--- NOTE | 2019-08-27 13:31 | PCM48HPAN ---
Post Anesthesia Note - EVALUATION WITHIN 48HRS OF ANESTHETIC Vital Signs in Normal Range: Yes Patient Participated in Evaluation: Yes Respiratory Function Stable: Yes Airway Patent: Yes Cardiovascular Function Stable: Yes Hydration Status Stable: Yes Pain Control Satisfactory: Yes Nausea and Vomiting Control Satisfactory: Yes Mental Status Recovered: Yes Vital Signs: Last Vital Signs Temp 98.2 F 08/27/19 13:00 Pulse 64 08/27/19 13:00 Resp 16 08/27/19 13:00 BP 104/64 08/27/19 13:00 Pulse Ox 96 08/27/19 13:00
[2019-08-27 14:39] VITALS: BP 104/71; PULSE 73
--- NOTE | 2019-08-27 16:03 | OR ---
SURGEON: Rosibel Reeder M.D. DATE OF PROCEDURE: 08/27/2019 PREOPERATIVE DIAGNOSIS: Menometrorrhagia. POSTOPERATIVE DIAGNOSIS: Menometrorrhagia. PROCEDURE: Operative hysteroscopy with directed biopsies and Yuli endometrial ablation. PRIMARY SURGEON: Rosibel Reeder M.D. ANESTHESIA: General LMA. EBL: 30 mL. FLUIDS: 1000 mL crystalloid. HYSTEROSCOPIC DEFICIT: 230 mL. FINDINGS: Uterus was sharply retroverted, sounds to 8 cm. Cervical length of 4 cm. Upon hysteroscopic evaluation, there were multiple polypoid lesions. Bilateral tubal ostia were identified. After removal of the polypoid lesions, the uterine cavity appeared normal. COMPLICATIONS: None known. DISPOSITION: Stable to recovery. BRIEF HISTORY: This is a 39-year-old female. She has had prior permanent sterilization. She presents for endometrial ablation having been offered IUD, hormonal management, and hysterectomy. She understands risks of ablation including bleeding, infection, uterine perforation with injury to surrounding organs, as well as understanding that she must never become following the ablation, even by assisted reproductive techniques. Understanding all these risks, she does desire to proceed. She has had an endometrial biopsy that was benign in the office. DESCRIPTION OF PROCEDURE: With the patient in dorsal lithotomy position, under adequate LMA analgesia, the perineum and vagina were prepped with Betadine and draped in usual fashion for vaginal surgery. SCDs were in place. She had voided immediately prior to the procedure, so the catheter was not utilized. Bimanual examination was performed after an appropriate time-out was held. The uterus was retroverted, 8-week size. A speculum was placed in the vagina. The posterior lip of the cervix was grasped with an Allis clamp and the cervix was sounded and dilated to 6 mm Hegar dilator. The 5-mm hysteroscope was placed into the uterine cavity. There was polypoid lesions noted. Therefore, the hysteroscope was changed out to the MyoSure hysteroscope, and using the MyoSure device, the polypoid area particularly along the anterior endometrium was excised, and with this, the uterine cavity appeared normal. The fundus appeared normal and bilateral tubal ostia were identified. This being completed, the MyoSure was prepared and the depth was placed at 4 cm. The arms were retracted and placed to the uterine fundus. The arms were then expanded and the balloon was filled with air. The MyoSure test cycle followed by 2 minute treatment cycle was performed without any difficulty. The balloon was then desufflated. The arms were retracted and Yuli device was removed. The instruments removed from the vagina. Final sponge, needle, and instrument counts were reported as correct. There were no known complications. The patient was transferred to recovery in good condition. TARUN WINSTON /[id number]
== END 2019-08-27 14:20 | disposition home or self-care (01) ==
LOC: MW.SDS 08:49
PROVIDERS: ATTEND Obstetrics & Gynecology
DX: N92.1 Excessive and frequent menstruation with irregular cycle (principal); N84.0 Polyp of corpus uteri; I10 Essential (primary) hypertension; J45.909 Unspecified asthma, uncomplicated; E78.00 Pure hypercholesterolemia, unspecified; Z88.6 Allergy status to analgesic agent; Z87.891 Personal history of nicotine dependence; Z79.899 Other long term (current) drug therapy
CPT/HCPCS: 36415; 58563; 84132; 84703; 85027; J0131; J2001; J2250; J2405; J2704; J3010; J3490; J7120; J1885